=== PATIENT | female | born 2000 | race Caucasian/White ===

== ENCOUNTER 2020-12-12 09:08 | Inpatient (IN) | payer OTHER ==
[2020-12-12] MEDS ORDERED: Acetaminophen 500 MG TAB PO PRN (09:59)
[2020-12-12] MEDS ORDERED: Misoprostol 200 MCG TAB PR PRN (09:59)
[2020-12-12] MEDS ORDERED: Diphenoxylate HCl/Atropine Tablet PO PRN (09:59)
[2020-12-12] MEDS ORDERED: Lidocaine 1% (PF) 30 ML VIAL SC PRN (09:59)
[2020-12-12] MEDS ORDERED: Ibuprofen 800 MG TAB PO PRN (09:59)
[2020-12-12] MEDS ORDERED: Butorphanol Tartrate 1 MG/ML VIAL SLOW IVP PRN (09:59)
[2020-12-12] MEDS ORDERED: HYDROcodone/Acetaminophen 5/325 mg Tablet PO PRN ×3 (09:59→19:14)
[2020-12-12] MEDS ORDERED: Ondansetron PF 4 MG/2 ML Vial IVP PRN ×3 (09:59→19:14)
[2020-12-12] MEDS ORDERED: hydrALAZINE 20 MG/ML VIAL SLOW IVP PRN ×2 (09:59→19:14)
[2020-12-12] MEDS ORDERED: Methylergonovine 0.2 MG/ML VIAL IM PRN (09:59)
[2020-12-12] MEDS ORDERED: Promethazine HCl 25 MG/ML VIAL IM PRN ×3 (09:59→19:14)
[2020-12-12] MEDS ORDERED: Carboprost 250 MCG/ML AMP IM PRN (09:59)
[2020-12-12] MEDS ORDERED: Penicillin G Potassium 5 MILL.UNITS in Sodium Chloride 0.9% 100 ML IVPB SCH (10:00)
[2020-12-12] MEDS ORDERED: NS w/ Oxytocin 30 units 500 ML IV SCH ×3 (10:00→19:14)
[2020-12-12] MEDS ORDERED: NS w/ Oxytocin 30 units 500 ML IVPB SCH (10:00)
[2020-12-12] MEDS ORDERED: Penicillin G Potassium 5 MILL.UNITS VIAL ONE (10:36)
[2020-12-12] MEDS ORDERED: NS w/ Oxytocin 30 units 500 ML ONE (10:36)
[2020-12-12 11:01] LABS: Mean Corpuscular HGB CONC 31.7 g/dL (32.0-36.0); Mean Corpuscular Hemoglobin 26.1 pg (27.0-33.0); Mean Corpuscular Volume 82.2 fl (81.6-98.3); Platelet Count 299 10x3/uL (150-450); RBC Distribution Width 13.8 % (11.5-14.5); Red Blood Cell (RBC) Count 4.22 10x6/uL (3.90-5.03); White Blood Cell (WBC) Count 14.9 10x3/uL (3.5-10.5)
[2020-12-12 11:08] VITALS: BMI 35.0
[2020-12-12 11:36] LABS: Syphilis Antibody Nonreactive (Nonreactive); Syphilis Antibody Index 0.02 S/CO (<1.00 Non-Reactive)
[2020-12-12] MEDS: Lactated Ringer's 1,000 ML IV SCH (12:30)
[2020-12-12 13:16] LABS: SARS-CoV-2 NAA Rapid Test Not Detected (NotDetected)
[2020-12-12] MEDS ORDERED: Fentanyl 2 mcg/Bup 0.1% Cadd 100 ML ONE (13:42)
[2020-12-12] MEDS: Penicillin G 2.5 MILL.units 2.5 MILL.UNITS in Premix Bag 1 BAG IVPB SCH (14:27)
[2020-12-12] MEDS ORDERED: ePHEDrine Sulfate 50 MG/10 ML VIAL SLOW IVP PRN (14:29)
[2020-12-12] MEDS ORDERED: Lactated Ringer's 500 ML IV PRN (14:29)
[2020-12-12] MEDS ORDERED: diphenhydrAMINE 50 MG/ML VIAL IVP PRN (14:29)
[2020-12-12] MEDS ORDERED: Naloxone HCl 0.4 mg/ml Vial IVP PRN ×2 (14:29)
[2020-12-12] MEDS ORDERED: Acetaminophen 325 MG TAB PO PRN (14:29)
[2020-12-12] MEDS ORDERED: Hydrocerin (Eucerin) Cream 120 gm Jar TOP PRN (14:29)
[2020-12-12] MEDS ORDERED: Communication Order-Pharmacy FS SCH (14:30)
[2020-12-12] MEDS ORDERED: Fentanyl 2 mcg/Bupivacaine 0.1% Cassette 100 ML EPIDURAL SCH (14:30)
[2020-12-12 14:45] LABS: Hep B Surf Ag Non-Reactive S/CO (NonReactive)
[2020-12-12 15:05] LABS: HBSAg Index 0.16 S/CO (0-0.99)
[2020-12-12] MEDS ORDERED: diphenhydrAMINE 25 MG CAP PO PRN (19:14)
[2020-12-12] MEDS ORDERED: Milk Of Magnesia 30 ML UDCUP PO PRN (19:14)
[2020-12-12] MEDS ORDERED: Preparation H Ointment 28 GM TUBE PR PRN (19:14)
[2020-12-12] MEDS ORDERED: Benzocaine-Menthol 82.5 ML CAN TOP PRN (19:14)
[2020-12-12] MEDS ORDERED: Lanolin Ointment 7 GM TUBE TOP PRN (19:14)
[2020-12-12] MEDS ORDERED: Boostrix 0.5 ML (Tdap) VIAL IM ONE (19:14)
[2020-12-12] MEDS ORDERED: Bisacodyl 10 MG SUPP PR PRN (19:14)
[2020-12-12] MEDS ORDERED: cloNIDine 0.1 MG TAB PO SCH (22:00)
[2020-12-12] MEDS: Ibuprofen 800 MG TAB PO SCH (23:20)
[2020-12-12] MEDS: Docusate Calcium (SURFAK) 240 MG CAP PO SCH (23:20)
[2020-12-13] MEDS: Ibuprofen 800 MG TAB PO SCH ×3 (05:39→21:02)
[2020-12-13] MEDS: Prenatal Vitamin 1 TAB PO SCH (08:45)
[2020-12-13] MEDS: Docusate Calcium (SURFAK) 240 MG CAP PO SCH ×2 (08:45→21:02)
[2020-12-13] MEDS: Ferrous Sulfate 325 MG TAB PO SCH ×2 (08:46→16:01)
[2020-12-13] MEDS: Lactated Ringer's 1,000 ML IV SCH (09:55)
[2020-12-13] MEDS: Penicillin G 2.5 MILL.units 2.5 MILL.UNITS in Premix Bag 1 BAG IVPB SCH (09:55)
[2020-12-14] MEDS: Ibuprofen 800 MG TAB PO SCH ×2 (05:43→14:15)
[2020-12-14 07:59] VITALS: BP 124/72; TEMP 98.2
[2020-12-14] MEDS: Ferrous Sulfate 325 MG TAB PO SCH (08:41)
[2020-12-14] MEDS: Docusate Calcium (SURFAK) 240 MG CAP PO SCH (08:42)
[2020-12-14] MEDS: Prenatal Vitamin 1 TAB PO SCH (08:42)
== END 2020-12-14 15:45 | disposition home or self-care (01) | DRG 807 ==
LOC: CSHLD/OP 09:08 → CSHLD 10:30 → CSHPP 23:10
PROVIDERS: ADMIT Family Medicine; ATTEND Family Medicine
PROC: 10E0XZZ Delivery of Products of Conception, External Approach (ICD-10-PCS; principal; 2020-12-12)
PROC: 0HQ9XZZ Repair Perineum Skin, External Approach (ICD-10-PCS; 2020-12-12)
DX: O98.82 Other maternal infectious and parasitic diseases complicating childbirth (principal); Z37.0 Single live birth; B95.1 Streptococcus, group B, as the cause of diseases classified elsewhere; O70.0 First degree perineal laceration during delivery; Z3A.37 37 weeks gestation of pregnancy; Z20.822 Contact with and (suspected) exposure to COVID-19
CPT/HCPCS: 36415; 51702; 85027; 86780; 86850; 86900; 86901; 87340; 99285; J0595; J2001; J2540; J2590; U0002